=== PATIENT | female | born 1985 | race Caucasian/White ===

== ENCOUNTER 2017-11-01 20:42 | Emergency (ER) | payer BC, SELFPAY ==
[2017-11-01] MEDS ORDERED: Morphine 4 MG/ML VIAL ONE (21:13)
[2017-11-01] MEDS ORDERED: Bacitracin Zinc 1 Packet ONE (21:57)
[2017-11-01] MEDS ORDERED: Adacel (T-DAP) 0.5 ML VIAL ONE (22:37)
== END 2017-11-01 23:00 | disposition home or self-care (01) ==
LOC: ERS 20:42
DX: S71.151A Open bite, right thigh, initial encounter (principal); F17.210 Nicotine dependence, cigarettes, uncomplicated; F41.9 Anxiety disorder, unspecified; F32.9 Major depressive disorder, single episode, unspecified; W54.0XXA Bitten by dog, initial encounter
CPT/HCPCS: 90471; 90715; 96372; J2270